=== PATIENT | female | born 1965 | race Caucasian/White ===

== ENCOUNTER → 2017-05-19 | Outpatient (CLI) | payer OTHER ==
[~2017-05-19] VITALS: Ht 167.6 cm; Wt 85.3 kg
[~2017-05-19] MED LIST: OCUFLOX 0.100 DROP/5 LEFT EYE; ULTRAM50 MG PO
== END | disposition home or self-care (01) ==
LOC: AMB 02-24 12:00
PROC: 0DJD8ZZ Inspection of Lower Intestinal Tract, Via Natural or Artificial Opening Endoscopic (ICD-10-PCS; principal; 2017-05-19)
DX: Z12.11 Encounter for screening for malignant neoplasm of colon (principal); K64.8 Other hemorrhoids; E78.5 Hyperlipidemia, unspecified; Z72.0 Tobacco use; Z86.19 Personal history of other infectious and parasitic diseases; Z80.1 Family history of malignant neoplasm of trachea, bronchus and lung
CPT/HCPCS: J2250; J2405

== ENCOUNTER 2017-12-31 16:06 | Inpatient (IN) | payer OTHER ==
[~2017-12-31] VITALS: Ht 167.6 cm; Wt 81.8 kg
[2017-12-31 16:53] LABS: HEMATOCRIT 37.1 % (36.0-46.0); HEMOGLOBIN 12.7 G/DL (11.9-15.5); MCH 30.9 PG (29.0-34.0); MCHC 34.2 G/DL (30.0-36.0); MCV 90.3 FL (83-99); PLATELET COUNT 191 K/uL (156-360); RBC DIS.WIDTH-CV 12.5 % (11.8-14.6); RBC DIS.WIDTH-SD 41.5 % (39-53); RED BLOOD COUNT 4.11 M/uL (3.80-5.20); WHITE BLOOD COUNT 7.3 K/uL (4.1-10.2)
[2017-12-31 17:03] LABS: PTT 28.9 SEC (25-37)
[2017-12-31 17:05] LABS: CHLORIDE 106 mEq/L (99-109); POTASSIUM 3.3 mEq/L (3.7-5.4); SODIUM 142 mEq/L (136-147)
[2017-12-31 17:06] LABS: AMYLASE 49 IU/L (1-118)
[2017-12-31 17:07] LABS: GLUCOSE 99 mg/dL (70-99)
[2017-12-31 17:08] LABS: TOTAL PROTEIN 6.3 g/dL (6.4-8.3)
[2017-12-31 17:09] LABS: TOTAL BILIRUBIN 0.4 mg/dL (0.0-1.0)
[2017-12-31 17:11] LABS: ALKALINE PHOSPHATASE 68 IU/L (3-129); CREATININE 0.8 mg/dL (0.6-1.3); GFR ESTIMATE (CALCULATED) > 59 mL/min/
[2017-12-31 17:12] LABS: UREA NITROGEN (BUN) 15 mg/dL (9-23)
[2017-12-31 17:13] LABS: AST (GOT) 14 IU/L (2-34)
[2017-12-31 17:14] LABS: ALT (GPT) 14 IU/L (3-49)
[2017-12-31 17:15] LABS: LIPASE 40 U/L (1.0-51.0); TROP-I INTERPRETATION NEGATIVE; TROPONIN-I 0.06 ng/mL (0.0-0.30)
[2017-12-31] MEDS ORDERED: FOLBIC RF TABL1 EACH PO (17:19)
[2017-12-31 17:33] LABS: QUANTITATIVE HCG < 4.0 MIU/ML
[2017-12-31] MEDS ORDERED: CYANOCOBALAM1000 MCG PO (18:22)
[2017-12-31 21:29] LABS: HDL CHOLESTEROL 42 MG/DL (Desirable>=50); LDL CHOLESTEROL 98 mg/dL (Desirable<100); NON-HDL CHOLESTEROL 123 mg/dL (Desirable<160); TOTAL CHOLESTEROL 165 mg/dL (Desirable<200); TRIGLYCERIDES 126 MG/DL (Normal: <150)
[2017-12-31 21:33] VITALS: BP 125/54
[2018-01-01 00:55] LABS: APPEARANCE CLEAR ((CLEAR)); BILIRUBIN NEGATIVE; BLOOD SMALL; COLOR YELLOW ((YELLOW)); GLUCOSE (STRIP) NEGATIVE; KETONES NEGATIVE; LEUKOCYTES NEGATIVE; NITRITE NEGATIVE; PROTEIN (STRIP) NEGATIVE; SPECIFIC GRAVITY 1.051 (1.000-1.030)
[2018-01-01 01:03] LABS: AMPHETAMINE NEGATIVE (500 ng/mL); BARBITURATES NEGATIVE (200 ng/mL); BENZODIAZEPINES NEGATIVE (150 ng/mL); BUPRENORPHINE NEGATIVE (10 ng/mL); COCAINE NEGATIVE (150 ng/mL); METHADONE NEGATIVE (200 ng/mL); METHAMPHETAMINE NEGATIVE (500 ng/mL); OPIATES (MORPHINE) NEGATIVE (100 ng/mL); OXYCODONE NEGATIVE (100 ng/mL); PHENCYCLIDINE NEGATIVE (25 ng/mL); PROPOXYPHENE NEGATIVE (300 ng/mL); THC CANNABINOIDS NEGATIVE (50 ng/mL); TRICYCLIC ANTIDEPRESSANTS NEGATIVE (300 ng/mL)
[2018-01-01 01:05] LABS: BACTERIA NONE SEEN /HPF; EPITHELIAL CELLS RARE /HPF; MUCUS TRACE /LPF; RED BLOOD CELLS 15-20 /HPF (0-5); UCUL ADDED? NO; WHITE BLOOD CELLS 0-5 /HPF (0-5)
[2018-01-01 01:10] LABS: TROP-I INTERPRETATION NEGATIVE; TROPONIN-I 0.07 ng/mL (0.0-0.30)
[2018-01-01 03:34] VITALS: BP 110/56
[2018-01-01 06:51] LABS: HEMATOCRIT 36.1 % (36.0-46.0); HEMOGLOBIN 11.8 G/DL (11.9-15.5); MCH 29.9 PG (29.0-34.0); MCHC 32.7 G/DL (30.0-36.0); MCV 91.4 FL (83-99); PLATELET COUNT 176 K/uL (156-360); RBC DIS.WIDTH-CV 12.8 % (11.8-14.6); RBC DIS.WIDTH-SD 42.7 % (39-53); RED BLOOD COUNT 3.95 M/uL (3.80-5.20); WHITE BLOOD COUNT 4.4 K/uL (4.1-10.2)
[2018-01-01 07:06] LABS: TROP-I INTERPRETATION NEGATIVE; TROPONIN-I 0.03 ng/mL (0.0-0.30)
[2018-01-01 07:34] VITALS: BP 114/57
[2018-01-01 10:03] LABS: HEMOGLOBIN A1c (GLYCOHEMOGLOB) 4.7 % (Below 5.7)
[2018-01-01 11:55] VITALS: BP 141/60
== END 2018-01-01 14:43 | disposition home or self-care (01) | DRG 74 ==
LOC: EME 16:06 → 5SOUTH 19:49 → EDOF 19:49 → ENRESERV 19:50 → 5SOUTH 21:30
PROVIDERS: Emergency Medicine; Hospitalist
DX: G50.0 Trigeminal neuralgia (principal); F17.200 Nicotine dependence, unspecified, uncomplicated; E04.1 Nontoxic single thyroid nodule
CPT/HCPCS: 70450; 70496; 70498; 70551; 71045; 80047; 80053; 80061; 81003; 82150; 83036; 83605; 83690; 84484; 84702; 85027; 85610; 85730; 93005; 99281; 99285